=== PATIENT | female | born 1975 | race Caucasian/White ===

== ENCOUNTER 2020-10-07 13:38 | Emergency (ER) | payer OTHER ==
[~2020-10-07 13:38] MED LIST: KEFLEX CAP 500500 MG PO
[2020-10-07 16:19] LABS: HEMOGLOBIN 15.5 gm/dl (12.3-15.3); RED BLOOD COUNT 5.32 M/UL (4.00-5.10); WHITE BLOOD COUNT 5.2 K/UL (4.5-11.0)
[2020-10-07 16:48] LABS: BUN/CREATININE RATIO 12 (0-10)
== END 2020-10-07 20:02 | disposition home or self-care (01) ==
LOC: ER1 13:38
PROVIDERS: Family Medicine
DX: Z23 Encounter for immunization (principal); U07.1 COVID-19; E66.01 Morbid (severe) obesity due to excess calories; E11.9 Type 2 diabetes mellitus without complications; Z90.49 Acquired absence of other specified parts of digestive tract; Z88.0 Allergy status to penicillin
CPT/HCPCS: 71045; 80053; 81001; 82550; 82553; 83874; 84439; 84443; 84484; 85025; 99283; M0243; U0002